=== PATIENT | female | born 1990 | race Caucasian/White ===

== ENCOUNTER 2024-07-01 10:04 | Emergency (ER) | payer SELFPAY ==
[2024-07-01 10:26] VITALS: BP 121/64
[2024-07-01 13:18] VITALS: BP 107/59
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
[2024-07-01 14:19] VITALS: BP 115/62
== END 2024-07-01 14:25 | disposition home or self-care (01) ==
LOC: EMR 10:04
PROVIDERS: EMERGENCY PHYSICIAN Emergency Medicine; FAMILY PHYSICIAN Physician Assistant Medical
DX: O26.892 Other specified pregnancy related conditions, second trimester (principal); R10.2 Pelvic and perineal pain; Z3A.20 20 weeks gestation of pregnancy; V43.52XA Car driver injured in collision with other type car in traffic accident, initial encounter
CPT/HCPCS: 99284; 76815

== ENCOUNTER 2024-11-24 10:23 | Inpatient (IN) | payer BC, SELFPAY ==
[2024-11-24 11:23] LABS: Hematocrit 38.7 % (37.0-47.0); Hemoglobin 13.5 g/dL (12.0-16.0); Mean Corp Hgb Conc. 34.9 g/dL (33.0-37.0); Mean Corpuscular Volume 86.6 fL (81.0-99.0); Nucleated Red Blood Cells % 0 %; Platelet Count 222 10^3/uL (130-400); Red Cell Dist. Width 14.4 % (11.5-14.5)
[2024-11-24 11:24] VITALS: BP 111/66; BMI 32.8
[2024-11-24] MEDS: STADOL 1 MG IV (13:26)
[2024-11-24] MEDS: FENTANYL/BUPIVACAINE 100 EPIDURAL (15:22)
[2024-11-24] MEDS: SUBLIMAZE 100 MCG EPIDURAL (15:22)
[2024-11-24] MEDS: LR 1000 IV (21:42)
[2024-11-24] MEDS: BICITRA 30 ML PO (21:42)
[2024-11-24] MEDS: TYLENOL 975 MG PO (21:43)
[2024-11-24] MEDS: ANCEF 10 IV (21:43)
[2024-11-24] MEDS: ZITHROMAX INFUSION 250 IV (22:59)
[2024-11-25] MEDS: ROXICODONE 5 MG PO ×2 (02:10→20:15)
[2024-11-25] MEDS: TORADOL 15 MG IV ×4 (04:05→22:28)
[2024-11-25 04:51] LABS: Hematocrit 34.5 % (37.0-47.0); Hemoglobin 11.7 g/dL (12.0-16.0); Mean Corp Hgb Conc. 33.9 g/dL (33.0-37.0); Mean Corpuscular Volume 88.2 fL (81.0-99.0); Platelet Count 188 10^3/uL (130-400); Red Cell Dist. Width 14.6 % (11.5-14.5)
[2024-11-25] MEDS: SYNTHROID 100 MCG PO (05:50)
[2024-11-25] MEDS: ZOLOFT 25 MG PO (08:23)
[2024-11-25] MEDS: COLACE 100 MG PO ×2 (08:23→20:17)
[2024-11-25] MEDS: PRENATAL PLUS 1 TABLET PO (08:23)
[2024-11-26] MEDS: ROXICODONE 5 MG PO (04:34)
[2024-11-26] MEDS: SYNTHROID 100 MCG PO (06:01)
[2024-11-26] MEDS: PRENATAL PLUS 1 TABLET PO (08:18)
[2024-11-26] MEDS: ZOLOFT 25 MG PO (08:19)
[2024-11-26] MEDS: COLACE 100 MG PO ×2 (08:20→20:10)
[2024-11-26] MEDS: MOTRIN 600 MG PO ×3 (08:20→20:10)
[2024-11-26] MEDS: TYLENOL 650 MG PO ×3 (08:21→20:11)
[2024-11-27] MEDS: TYLENOL 650 MG PO ×2 (02:33→07:50)
[2024-11-27] MEDS: MOTRIN 600 MG PO ×2 (02:34→08:39)
[2024-11-27] MEDS: SYNTHROID 100 MCG PO (06:12)
[2024-11-27] MEDS: ZOLOFT 25 MG PO (07:50)
[2024-11-27] MEDS: PRENATAL PLUS 1 TABLET PO ×2 (07:50)
--- NOTE | 2024-11-27 08:24 | W.DS.TRANS ---
DC Summary - [employer]
-
Discharge Instructions:
Discharge Diagnosis/Procedures delivered by repeat csection, failed
Diet Regular
Activity No strenuous activity
Driving Restrictions No driving for 2 weeks
Bathing Restrictions OK to Shower
Instructions:
Stand-Alone Forms: LDRP Delivery
Changes to Home Medications: No
Discharge Medications:
DC Medications w/original date entered in [employer]
levothyroxine 100 mcg tablet 100 mcg PO DAILY 11/24/24
vitamin-ferrous fumarate 28 mg iron-folic acid 800 mcg tablet ( Tablet) 1 tab PO DAILY 11/24/24
sertraline 25 mg tablet 25 mg PO DAILY 11/24/24
acetaminophen 325 mg tablet 650 mg (2 x 325 mg) PO Q4HPRN PRN mild pain #0 tabs 11/26/24
calcium carbonate (Calcium Antacid) 400 mg (2 x 200 mg calcium (500 mg)) PO Q6HPRN PRN indigestion #0 tabs 11/26/24
ibuprofen 600 mg tablet 600 mg PO Q6HPRN PRN cramps #0 tabs 11/26/24
oxycodone 5 mg tablet 5 mg PO Q4HPRN PRN moderate pain #8 tabs 11/26/24
Home Medication Changes
Pending Results: No
Total time spent discharging patient (in min): 30
[2024-11-27] MEDS: COLACE 100 MG PO (08:40)
[2024-11-27 13:19] LABS: Syphilis/T. pallidum Ab Reflex Negative (Negative)
== END 2024-11-27 13:00 | disposition home or self-care (01) | DRG 788 ==
LOC: LDRP 10:23
PROVIDERS: ADMITTING PHYSICIAN Obstetrics & Gynecology
PROC: 10D00Z1 Extraction of Products of Conception, Low, Open Approach (ICD-10-PCS; 2024-11-25)
DX: O48.0 Post-term pregnancy (principal); Z3A.41 41 weeks gestation of pregnancy; Z37.0 Single live birth; O65.5 Obstructed labor due to abnormality of maternal pelvic organs; O34.211 Maternal care for low transverse scar from previous cesarean delivery; O66.41 Failed attempted vaginal birth after previous cesarean delivery; K66.0 Peritoneal adhesions (postprocedural) (postinfection)
CPT/HCPCS: 36415; 85025; 85027; 86780; 86850; 86900; 86901; 93971